=== PATIENT | male | born 1960 | race Caucasian/White ===

== ENCOUNTER 2020-01-13 06:31 | Outpatient (CLI) | payer MEDICARE, MEDICAID, OTHER ==
[2020-01-13 14:11] LABS: INR-International Normal Ratio 0.9; PTT 28.6 sec (22.9-36.1); Prothrombin Time 12.5 sec (12.0-14.7)
[2020-01-13 14:14] LABS: Hemoglobin 15.4 g/dL (14.0-18.0); Mean Corpuscular Hemoglobin 29.3 pg (27.0-31.0); Mean Corpuscular Volume 94.5 fL (78.0-98.0); Platelet Count 422 thou/uL (130-400); RBC Distribution Width 13.6 % (11.5-14.5); Red Blood Cell (RBC) Count 5.25 mill/uL (4.70-6.10); White Blood Cell (WBC) Count 7.7 thou/uL (4.8-10.8)
[2020-01-13 14:39] LABS: Anion Gap 18 mmol/L (10-20); BUN (Urea Nitrogen) 29 mg/dL (8.4-25.7); Calc. Creatinine Clearance 0 mL/min (70-130); Calcium 10.2 mg/dL (7.8-10.44); Carbon Dioxide 24 mmol/L (23-31); Chloride 101 mmol/L (98-107); Estimated GFR-MDRD 41; Glucose 89 mg/dL (80-115); Potassium 3.8 mmol/L (3.5-5.1); Sodium 139 mmol/L (136-145)
[2020-01-14 12:05] LABS: SARS-CoV-2 MS2 Positive; SARS-CoV-2 N Gene Negative; SARS-CoV-2 S Gene Negative; SARS-CoV-2 by NAA Not Detected (NotDetected); SARS-CoV-2 orf1ab Negative
== END 2020-01-13 06:32 | disposition home or self-care (01) ==
LOC: LABBT 06:31
PROVIDERS: ATTEND Surgery
DX: Z01.818 Encounter for other preprocedural examination (principal); Z11.59 Encounter for screening for other viral diseases; M50.10 Cervical disc disorder with radiculopathy, unspecified cervical region; M50.00 Cervical disc disorder with myelopathy, unspecified cervical region; M48.02 Spinal stenosis, cervical region
CPT/HCPCS: 80048; 85027; 85610; 85730; 93005; U0003; 87635; 93010

== ENCOUNTER 2020-01-13 09:30 | Inpatient (IN) | payer MEDICARE, MEDICAID ==
[2020-01-10 11:57] VITALS: BMI 32.4
[2020-01-17] MEDS ORDERED: Thrombin 5000 UNITS/5 ML VIAL ONE (06:25)
[2020-01-17] MEDS ORDERED: Fentanyl 250 MCG/5 ML VIAL ONE (06:41)
[2020-01-17] MEDS ORDERED: Midazolam HCl 2 mg/2 ml Vial ONE (06:41)
[2020-01-17] MEDS ORDERED: Ondansetron PF 4 MG/2 ML Vial ONE (08:58)
[2020-01-17] MEDS ORDERED: Rocuronium Bromide 10 MG/ML (10ML VIAL) ONE (08:58)
[2020-01-17] MEDS ORDERED: PHENYLEPHRINE-NS 100 MCG/ML 10 ML SYRINGE ONE (08:58)
[2020-01-17] MEDS ORDERED: Lidocaine 1% PF 5 ML VIAL ONE (08:58)
[2020-01-17] MEDS ORDERED: EPHEDRINE 25 MG/5 ML SYRINGE ONE (08:58)
[2020-01-17] MEDS ORDERED: PROPOFOL 200 MG/20 ML VIAL ONE (08:58)
[2020-01-17] MEDS ORDERED: Dexamethasone 20 MG/5 ML VIAL ONE (08:58)
[2020-01-17] MEDS ORDERED: SUGAMMADEX SODIUM 200 MG/2 ML VIAL ONE (09:27)
[2020-01-17] MEDS ORDERED: Bisacodyl 10 MG SUPP PR PRN (09:41)
[2020-01-17] MEDS ORDERED: diphenhydrAMINE 25 MG CAP PO PRN (09:41)
[2020-01-17] MEDS ORDERED: Fleet Enema 133 ML BOT PR PRN (09:41)
[2020-01-17] MEDS ORDERED: Acetaminophen 325 MG TAB PO PRN (09:41)
[2020-01-17] MEDS ORDERED: Morphine 2 MG/ML VIAL SLOW IVP PRN (09:41)
[2020-01-17] MEDS ORDERED: tiZANidine HCl 4 MG TAB PO PRN (09:41)
[2020-01-17] MEDS ORDERED: traMADol HCl 50 MG TAB PO PRN (09:41)
[2020-01-17] MEDS ORDERED: Milk Of Magnesia 30 ML UDCUP PO PRN (09:41)
[2020-01-17] MEDS ORDERED: Acetaminophen/Codeine 30-300mg Tablet PO PRN (09:41)
[2020-01-17] MEDS ORDERED: Ondansetron PF 4 MG/2 ML Vial IVP PRN (09:41)
[2020-01-17] MEDS ORDERED: Mag-Al 1200 mg/1200 mg/30 ML UDCUP PO PRN (09:41)
[2020-01-17] MEDS ORDERED: Fentanyl 100 MCG/2 ML VIAL ONE ×2 (10:00→10:19)
--- NOTE | 2020-01-17 10:10 | OP ---
DATE OF PROCEDURE: 01/17/2020 IMPORT EXPORT AGENT: Kristin Sams PA-C PREPROCEDURE DIAGNOSIS: Large disk extrusion, C5-C6. POSTPROCEDURE DIAGNOSIS: Large disk extrusion, C5-C6. PROCEDURES PERFORMED: 1. Anterior C5-C6 diskectomy for decompression of spinal cord nerve roots. 2. Preparation and placement of interbody spacer packed with local bone autograft, obtained with same incision and allograft C5-C6 for arthrodesis. 3. Anterior cervical plate and screw fixation, C5-C6. 4. Use of operating microscope for microdissection. DESCRIPTION OF PROCEDURE: After informed consent was obtained from the patient, the patient was brought to the OR. Proper patient, pause, and identification were carried out. He was placed under excellent general endotracheal anesthesia and positioned supine on the OR table. Cervical spine was kept in neutral position. A right transverse hina was identified to allow for approach to C5-C6 segment. This region was sterilely cleansed, prepared, and draped. Proper patient, pause, and identification were carried out. The wound was then opened with combination of sharp, monopolar, and blunt dissection. C5-C6 segments were exposed. Localization film confirmed area of interest. Distraction occurred. We then performed C5-C6 diskectomy with the microscope and had excellent decompression of spinal cord and nerve roots with multiple large fragments removed. Endplates prepared, interbody spacer packed with graft placed for arthrodesis initiation. Microscope removed. Anterior cervical plate and screw fixation at C5-C6 then performed. Copious irrigation and hemostasis occurred throughout as did closure over a drain. The patient emerged from anesthesia. Job ID: [id number]
[2020-01-17] MEDS: HYDROcodone/Acetaminophen 7.5/325 mg Tablet PO PRN ×2 (11:24→15:53)
[2020-01-17] MEDS: HumaLOG 300 UNITS/3 ML VIAL SC PRN ×3 (13:33→21:06)
[2020-01-17] MEDS ORDERED: HumaLOG 300 UNITS/3 ML VIAL SC SCH (15:00)
[2020-01-17] MEDS: CEFAZOLIN 2 GM in Premix Bag 1 BAG IVPB SCH ×2 (15:53→23:33)
[2020-01-17] MEDS: Sodium Chloride 0.9% 1,000 ML IV SCH ×2 (19:56→23:36)
[2020-01-17] MEDS ORDERED: Insulin Glargine 12 UNITS in Pre-Filled Syringe 1 EACH SC SCH (21:00)
[2020-01-17] MEDS ORDERED: Amitriptyline HCl 25 MG TAB PO SCH (21:00)
[2020-01-17] MEDS: levETIRAcetam 500 MG TAB PO SCH (21:08)
[2020-01-18] MEDS: HumaLOG 300 UNITS/3 ML VIAL SC PRN ×3 (00:52→11:05)
[2020-01-18] MEDS: CEFAZOLIN 2 GM in Premix Bag 1 BAG IVPB SCH (06:28)
[2020-01-18] MEDS: HYDROcodone/Acetaminophen 7.5/325 mg Tablet PO PRN (06:32)
[2020-01-18] MEDS: levETIRAcetam 500 MG TAB PO SCH (08:02)
[2020-01-18] MEDS ORDERED: Rosuvastatin 20 MG TAB PO SCH (09:00)
[2020-01-18] MEDS ORDERED: Losartan 25 MG TAB PO SCH (09:00)
[2020-01-18] MEDS ORDERED: Amlodipine 5 MG TAB PO SCH (09:00)
[2020-01-18] MEDS ORDERED: Hydrochlorothiazide 25 MG TAB PO SCH (09:00)
[2020-01-18] MEDS ORDERED: Insulin Glargine 14 UNITS in Pre-Filled Syringe 1 EACH SC SCH (09:00)
[2020-01-18 10:58] VITALS: BP 118/70; TEMP 98
--- NOTE | 2020-01-18 12:24 | PRG ---
DATE OF SERVICE: 01/18/2020 Mr. Miller is postoperative day 1 of C5-6 ACDF. He has had resolution of his left arm pain and has full strength and frankly looks outstanding. He does have significant sore throat, not surprising given retraction associated with ACDF. Nevertheless, he is doing very well. His drain output has been zero. We will remove it. We went over intra and postoperative issues, restrictions. He will be discharged. Job ID: [id number]
== END 2020-01-18 13:13 | disposition home or self-care (01) | DRG 472 ==
LOC: SURG A 01-17 06:02 → EDSTATUS 01-17 09:30 → SJJU 01-17 11:31
PROVIDERS: ADMIT Surgery; ATTEND Surgery
PROC: 0RG10A0 Fusion of Cervical Vertebral Joint with Interbody Fusion Device, Anterior Approach, Anterior Column, Open Approach (ICD-10-PCS; principal; 2020-01-17)
PROC: 0RB30ZZ Excision of Cervical Vertebral Disc, Open Approach (ICD-10-PCS; 2020-01-17)
PROC: 01N10ZZ Release Cervical Nerve, Open Approach (ICD-10-PCS; 2020-01-17)
DX: M50.122 Cervical disc disorder at C5-C6 level with radiculopathy (principal); M50.022 Cervical disc disorder at C5-C6 level with myelopathy; M48.02 Spinal stenosis, cervical region; I10 Essential (primary) hypertension; I25.10 Atherosclerotic heart disease of native coronary artery without angina pectoris; E11.9 Type 2 diabetes mellitus without complications; G40.909 Epilepsy, unspecified, not intractable, without status epilepticus; E78.5 Hyperlipidemia, unspecified; Z79.899 Other long term (current) drug therapy; Z79.82 Long term (current) use of aspirin; Z79.02 Long term (current) use of antithrombotics/antiplatelets; Z79.4 Long term (current) use of insulin; Z95.5 Presence of coronary angioplasty implant and graft; I25.2 Old myocardial infarction
CPT/HCPCS: 36416; 76000; C1713; C1776; J0690; J1815; J2250; J3010; J3490